=== PATIENT | female | born 1990 | race Hispanic/Latino ===

== ENCOUNTER 2020-05-23 16:21 | Inpatient (IN) | payer MEDICAID ==
[2020-05-23 17:25] LABS: Bilirubin,Urine NEG (Negative); Blood,Urine NEG (Negative); Color,Urine Straw (Yellow); Mucus,Urine FEW /HPF; Protein,Urine <15 mg/dL mg/dL (Negative); Urobilinogen,Urine < 2.0 mg/dL (<2.0); WBC,Urine < 1.0 /HPF (0.0-6.0)
[2020-05-23] MEDS ORDERED: LACTATED RINGERS 1,000 ML IV SCH ×3 (18:00→20:00)
[2020-05-23 18:46] LABS: Hematocrit 38.3 % (30.3-42.9); Hemoglobin 12.6 gm/dl (10.1-14.3); Mean Corpuscular HGB Conc 33 % (30-34); Mean Corpuscular Volume 87 fl (79-97); Platelet Count 235 K/mm3 (140-440); Red Blood Count 4.42 M/mm3 (3.65-5.03); Red Cell Distribution Width 13.8 % (13.2-15.2)
[2020-05-23] MEDS ORDERED: PROMETHAZINE 25 MG RECT SUPP PR PRN (18:47)
[2020-05-23] MEDS ORDERED: NALOXONE 0.4 MG/1 ML INJ IV PRN ×2 (18:47→20:41)
[2020-05-23] MEDS ORDERED: HYDROmorphone 1 MG/1 ML INJ IV PRN (18:47)
[2020-05-23] MEDS ORDERED: PROMETHAZINE 25 MG TAB PO PRN (18:47)
[2020-05-23] MEDS ORDERED: ONDANSETRON 4 MG/2 ML INJ IV PRN ×2 (18:47→20:41)
[2020-05-23] MEDS ORDERED: diphenhydrAMINE 50 MG/ML VIAL IV PRN (18:47)
[2020-05-23] MEDS ORDERED: NalbUPHINE 10 MG/1 ML INJ IV PRN (18:47)
--- NOTE | 2020-05-23 18:47 | Anesthesia Day of Surgery ---
Anesthesia Day of Surgery - Day of Surgery Patient Examined: Yes Patient H&P Reviewed: Yes Patient is NPO: Yes Beta Blockers: No Cardiac Clearance: No Pulmonary Clearance: No Conner's Test: N/A
--- NOTE | 2020-05-23 18:47 | Anesthesia Consultation ---
Anesthesia Consult and Med Hx Date of service: 05/23/20 - Airway Anesthetic Teeth Evaluation: Good ROM Head & Neck: Adequate Mental/Hyoid Distance: Adequate Mallampati Class: Class I Intubation Access Assessment: Good - Pulmonary Exam CTA: Yes - Cardiac Exam Cardiac Exam: RRR - Pre-Operative Health Status ASA Pre-Surgery Classification: ASA2 Proposed Anesthetic Plan: Spinal - Pulmonary Hx Smoking: Yes (marijuana) Hx Asthma: No - Cardiovascular System Hx Hypertension: No - Central Nervous System Hx Seizures: Yes (last seizure 2017) Hx Psychiatric Problems: No - Gastrointestinal Hx Gastroesophageal Reflux Disease: No - Endocrine Hx Renal Disease: No Hx Hypothyroidism: No Hx Hyperthyroidism: Yes - Hematic Hx Anemia: Yes Hx Sickle Cell Disease: No - Other Systems Hx Alcohol Use: No
--- NOTE | 2020-05-23 18:52 | History and Physical Report ---
History of Present Illness Date of examination: 05/23/20 Date of admission: 05/23/2020 Chief complaint: Contractions at term History of present illness: x 2 cesareans. FREDA 06/07/2020. Past History Past Medical History: thyroid disease Past Surgical History: section - Obstetrical History Expected Date of Delivery: 06/07/20 Actual Gestation: 37 Week(s) 6 Day(s) : 4 Medications and Allergies Allergies Allergy/AdvReac Type Severity Reaction Status Date / Time ibuprofen AdvReac Severe Anaphylaxis Verified 05/23/20 17:02 Penicillins AdvReac Severe Anaphylaxis Verified 05/23/20 17:01 Active Meds: Active Medications Lactated Ringer's (Lactated Ringers) 1,000 mls @ 125 mls/hr IV DIRECT KELSIE Review of Systems All systems: negative - Vital Signs Vital signs: Vital Signs Pulse BP Pulse Ox 69 117/70 98 05/23/20 16:57 05/23/20 16:57 05/23/20 16:57 Temp Pulse Resp BP Pulse Ox 97.7 F 73 20 117/70 98 05/23/20 17:40 05/23/20 17:57 05/23/20 17:40 05/23/20 17:40 05/23/20 17:57 - Physical Exam Lungs: Positive: Normal air movement Abdomen: Positive: distention. Negative: tenderness - Obstetrical FHR: auscultation normal Uterine Contraction Monitor Mode: External Uterine Contraction Pattern: Regular Results Result Diagrams: 05/23/20 18:00 All other labs normal. Assessment and Plan - Patient Problems (1) 37 or more weeks gestation of Current Visit: Yes Status: Acute (2) Previous delivery, antepartum Current Visit: Yes Status: Acute (3) Active labor at term Current Visit: Yes Status: Acute Plan to address problem: delivery and lysis of adhesions fully discussed and patient gave her consent for surgery.
[2020-05-23] MEDS ORDERED: DEXMEDETOMIDINE 200 MCG/2 ML VIAL IV ONE (18:53)
[2020-05-23 18:55] LABS: Bilirubin,Urine NEG (Negative); Blood,Urine NEG (Negative); Color,Urine Straw (Yellow); Protein,Urine <15 mg/dL mg/dL (Negative); RBC,Urine < 1.0 /HPF (0.0-6.0); Urobilinogen,Urine < 2.0 mg/dL (<2.0); WBC,Urine < 1.0 /HPF (0.0-6.0)
[2020-05-23] MEDS ORDERED: GENTAMICIN 80 MG in SODIUM CHLORIDE 0.9% 100 ML IV ONE ×2 (18:55→19:07)
[2020-05-23] MEDS ORDERED: METOCLOPRAMIDE 10 MG/2 ML INJ IV ONE ×2 (18:55→19:07)
[2020-05-23] MEDS ORDERED: FAMOTIDINE 20 MG/2 ML INJ IV ONE ×3 (18:55→19:08)
[2020-05-23] MEDS ORDERED: BICITRA ORAL LIQD 30ML PO ONE ×2 (18:55→19:07)
[2020-05-23] MEDS ORDERED: BUPIVACAINE /DEX-WATER 0.75% (2 ML) AMPULE INFILTRATI ONE (18:57)
[2020-05-23] MEDS ORDERED: NEOSTIGMINE 10MG/10 ML INJ MDV ONE (19:00)
[2020-05-23] MEDS ORDERED: OXYTOCIN 20 UNIT/1000ML DRIP 20 UNITS/1,000 ML BAG IV SCH ×3 (19:00→21:00)
[2020-05-23] MEDS ORDERED: GENTAMICIN/NS 80 MG/100 ML 100 ML IV SCH (19:00)
[2020-05-23] MEDS ORDERED: SODIUM CHLORIDE P/F VIAL 10 ML 20 ML ONE (19:05)
[2020-05-23] MEDS ORDERED: BUPIVACAINE/PF (0.5%) 5 MG/1 ML 30 ML VIAL INFILTRATI ONE (19:05)
[2020-05-23] MEDS ORDERED: METOCLOPRAMIDE 10 MG/2 ML INJ ONE (19:08)
[2020-05-23] MEDS ORDERED: BICITRA ORAL LIQD 30ML ONE (19:08)
[2020-05-23 19:09] LABS: Amphetamine Screen,Urine PRESUMPTIVE NEGATIVE; Benzodiazepines Screen,Urine PRESUMPTIVE NEGATIVE; Cannabinoid Screen,Urine PRESUMPTIVE POSITIVE; Cocaine Screen,Urine PRESUMPTIVE POSITIVE; Methadone Screen,Urine PRESUMPTIVE NEGATIVE; Opiate Screen,Urine PRESUMPTIVE NEGATIVE
--- NOTE | 2020-05-23 19:52 | Progress Note ---
Spinal Anesthesia Block - Spinal Anesthesia Block Start Time: 19:41 Stop Time: 19:47 Performed by:: LEIA GARCIA ([facility]) Procedure: Spinal anesthesia block is being performed for [C/S]. H&P, labs have been reviewed. Patient's questions and concerns have been answered. Informed consent has been performed. Timeout has was performed. Patient in sitting position on side of bed. Sterile prep and drape was performed. 3 mL 1% lidoc kevin skin wheal at L [3]-L [4]. Needle introducer advanced. 25-gauge spinal needle advanced, [+] CSF [-] blood. [Precedex 10mcg and Marcaine 10mg] Spinal dose was given. All needles removed. Patient tolerated procedure well.
[2020-05-23] MEDS ORDERED: SODIUM CHLORIDE 0.9% IRR 1,500 ML BOTTLE IR ONE (20:03)
[2020-05-23] MEDS ORDERED: WATER FOR IRRIG STERILE 1,500 ML BOTTLE IR ONE (20:03)
[2020-05-23] MEDS ORDERED: fentaNYL 100 MCG/2 ML INJ ONE (20:14)
[2020-05-23] MEDS ORDERED: MIDAZOLAM 2 MG/2 ML INJ ONE (20:15)
[2020-05-23] MEDS ORDERED: ACETAMINOPHEN 325 MG TAB PO PRN (20:41)
[2020-05-23] MEDS ORDERED: WITCH HAZEL/ GLYCERIN PAD TP PRN (20:41)
[2020-05-23] MEDS ORDERED: LANOLIN/ZINC/DIMETHICONE (LANSINOH) 7 GM TP PRN (20:41)
--- NOTE | 2020-05-23 20:47 | Operative Report ---
Operative Report Operative Report: Date of surgery: May 23, 2020 Preoperative diagnoses: 2 previous sections, active labor, peritoneal adhesions Postoperative diagnoses: The same. Operation: Lower segment transverse delivery, lysis of adhesions Surgeon:Anamaria Benedict MD Lead Project Engineer: Manuelito Quezada CRNA Anesthesia: Spinal block Estimated blood loss: 500 mL Complications: None Findings: There was a live baby girl weight 5 pounds 3 ounces in cephalic presentation. scores were 8/9. The ovaries, fallopian tubes and the uterus were unremarkable grossly normal structures. The inferior reaches of the greater omentum was adherent to the posterior aspect of the navel. Procedure in detail: The patient was taken to the operating room and given a spinal block. Patient was placed in the straight supine position and a Oreilly catheter was inserted. The patient was prepped in the abdomen. The drapes were placed. A timeout was done. With the go ahead from the grocery manager, a Pfannenstiel incision was made. This incision was carried across the subcutaneous layer to the fascia which was also divided transversely. The recti abdominis muscle flaps were stripped from the fascia using a combination of blunt and sharp dissections. The muscles were in the midline to gain access to the anterior parietal peritoneum which was divided after excluding any underlying viscera. The access to the peritoneal cavity was then widened by manual stretching. The bladder blade was applied. The utero vesicle peritoneal flap was divided transversely allowing the bladder to be displaced caudally. The uterine incision was placed in the lower segment transversely. The uterine incision was carried to the decidual layer. The uterine incision was extended on both sides using the bandage scissors. The amniotic sac was ruptured with clear fluid. The head was lifted out of the false maternal pelvis and delivered through the incision using fundal pressure. The airways were bulb suctioned beginning with the mouth. Continuing fundal pressure combined with traction on the mandibular processes of the jaw delivered the rest of the baby. The umbilical cord was double clamped and divided. The baby was carefully transferred to the pediatric team. The placenta was manually removed from the uterine cavity. The uterine cavity was explored and was empty of any placental remnants. The uterine incision was repaired in 2 layers with #1 Vicryl. The surgical line on the uterus was hemostatic. The adhesions involving the greater omentum to the anterior parietal peritoneum at the level were double clamped and divided and then tied off with #1 Vicryl. Hemostasis was excellent. Blood and clots were cleared from the peritoneal cavity. The anterior parietal peritoneum was repaired with #1 Vicryl. The fascia was repaired with #1 Vicryl. The subcutaneous layer was made hemostatic using the Bovie before the skin was closed subcuticularly with 4-0 Vicryl. There were no complications. The estimated blood loss was 500 mL. All sponges and instrument counts were correct. Patient was safely transferred to the recovery room.
--- NOTE | 2020-05-23 21:07 | Progress Note ---
Regional Anesthesia Block - Regional Anesthesia Block Start Time: 20:53 Stop Time: 21:01 Performed By:: LEIA GARCIA Procedure: Patient consented for TAP block for post surgical pain management. Patient identified, monitors placed, and time out performed. TAP identified bilaterally via ultrasound. Skin prepped bilaterally with [chlorhexidine] and [20g stimuplex] needle advanced to the TAP. 20ml [Marcaine 0.2% with 20mcg Precedex] injected under ultrasound guidance on the [left] side. 20ml [Marcaine 0.2% with 20mcg Precedex] injected under ultrasound guidance on the [right] side.
[2020-05-24] MEDS: HYDROcodone/ACETAMINOPHEN 5-325 MG TAB PO PRN ×2 (00:01→12:51)
[2020-05-24] MEDS: CLINDAMYCIN 600 MG/50 mL 600 MG/50 ML BAG IV SCH ×2 (03:12→12:26)
[2020-05-24] MEDS: HYDROmorphone/NS 6 MG/30 ML PCA INJ IV SCH ×2 (03:29→13:05)
[2020-05-24] MEDS ORDERED: D5W/LACTATED RINGERS 1,000 ML IV SCH (04:00)
[2020-05-24] MEDS: diphenhydrAMINE 25 MG CAP PO PRN ×2 (09:49→16:28)
[2020-05-24 09:52] LABS: Hematocrit 33.4 % (30.3-42.9)
[2020-05-24] MEDS ORDERED: PRENATAL VIT27-FE FUMARATE-FOLIC ACID VIT TAB PO SCH (10:00)
[2020-05-24] MEDS ORDERED: FERROUS SULFATE 325 MG TAB PO SCH (10:00)
--- NOTE | 2020-05-24 10:24 | Post Anesthesia Evaluation ---
- Post Anesthesia Evaluation Patient Participated: Yes Airway Patent: Yes Stable Respiratory Function: Yes Nausea/Vomiting: No Temp > 96.8F: Yes Pain Manageable: Yes Adequeate Hydration: Yes Anesthesia Complications: No Block Receding Appropriately: Yes Patient on Ventilator: No
--- NOTE | 2020-05-24 10:43 | Progress Note ---
Assessment and Plan A: POD #1 Thyroid Disorder + UDS P: Follow Routine PostOp Orders Re-start Levothyroxine 150mcg 1XD Chainstitch Binder Consult Subjective - Subjective Date of service: 05/24/20 Patient reports: appetite normal, voiding normally (Oreilly in Place; urine ouput is adquate), pain well controlled, flatus, ambulating normally, other (Very concerned about +UDS for THC and Cocaine; states that the nurse got the speciman out of the trash can and could have mixed her urine up with another patient. Admits to smoking THC, but states she stopped smoking on Father's Day. States she may handle cocaine, but she does not use it. ) [place]: bottle feeding Objective - Vital Signs Latest vital signs: Vital Signs Temp Pulse Resp BP BP Pulse Ox 05/24/20 08:00 97.6 F 85 18 153/87 97 05/24/20 05:15 97.6 F 68 20 135/91 96 05/24/20 01:06 97.7 F 74 20 118/77 96 05/23/20 21:50 63 13 112/74 95 05/23/20 21:35 60 14 115/77 97 05/23/20 21:15 70 13 95/74 100 05/23/20 21:00 63 15 100/49 99 05/23/20 20:55 62 15 91/47 100 05/23/20 20:50 96.7 F L 79 15 106/36 98 05/23/20 19:30 82 98 05/23/20 19:25 83 98 05/23/20 17:57 73 98 05/23/20 17:52 84 97 05/23/20 17:47 79 96 05/23/20 17:42 72 96 05/23/20 17:40 97.7 F 79 20 117/70 96 05/23/20 17:37 78 96 05/23/20 17:32 76 97 05/23/20 17:27 83 98 05/23/20 17:22 85 96 05/23/20 17:17 77 97 05/23/20 17:12 70 96 05/23/20 17:07 77 97 05/23/20 17:02 74 97 05/23/20 16:57 69 117/70 98 Intake and Output 05/23/20 05/24/20 05/24/20 22:59 06:59 14:59 Intake Total 1500 Output Total 150 Balance 1350 Intake: IV 1500 Output: Urine 150 Other: Weight 58.06 kg - Exam Breasts: Present: normal Cardiovascular: Present: Regular rate Lungs: Present: Clear to auscultation, Normal air movement Abdomen: Present: normal appearance, soft, normal bowel sounds Uterus: Present: normal, firm, fundal height below umbilicus Extremities: Present: normal Incision: Present: dry, dressed
[2020-05-24] MEDS ORDERED: CLINDAMYCIN 600 MG/50 mL 600 MG/50 ML BAG IV ONE (12:00)
[2020-05-24 18:49] VITALS: BP 144/86
[2020-05-25] MEDS ORDERED: LEVOTHYROXINE 150 MCG TAB PO SCH (06:00)
== END 2020-05-24 18:15 | disposition left against medical advice (07) | DRG 766 ==
LOC: TRG 16:21 → APU 16:23 → TRG 20:48 → APU 20:51 → OB 23:04
PROVIDERS: ADMIT Obstetrics & Gynecology; ATTEND Obstetrics & Gynecology
PROC: 10D00Z1 Extraction of Products of Conception, Low, Open Approach (ICD-10-PCS; principal; 2020-05-23)
DX: O34.211 Maternal care for low transverse scar from previous cesarean delivery (principal); O99.62 Diseases of the digestive system complicating childbirth; K66.0 Peritoneal adhesions (postprocedural) (postinfection); O99.284 Endocrine, nutritional and metabolic diseases complicating childbirth; E07.9 Disorder of thyroid, unspecified; D64.9 Anemia, unspecified; O99.02 Anemia complicating childbirth; Z3A.37 37 weeks gestation of pregnancy; Z37.0 Single live birth; Z88.0 Allergy status to penicillin
CPT/HCPCS: 36415; 80307; 81001; 85014; 85018; 85027; 86592; 86850; 86900; 86901; 88307; G0378; J1170; J1580; J2250; J2405; J2590; J2710; J2765; J3010; J3490; J7120; J7121